=== PATIENT | female | born 1990 | race Caucasian/White ===

== ENCOUNTER 2017-04-02 17:16 | Emergency (ER) | payer OTHER ==
[~2017-04-02] VITALS: Ht 162.6 cm; Wt 77.6 kg
[~2017-04-02 17:16] MED LIST: 12 HOUR DECONG120 M1 PO; ALBUTEROL SULF8.5 GM IH; ANTIVERT25 MG PO; AZITHROMYCIN250 MG1 PO; BACTRIM,SEPT1 TABLET PO; CLARITIN10 M3 PO; Cipro PO; Flagyl PO; KEFLEX500 MG PO; Mylicon,Mylanta Gas, PO; PREDNISONE20 MG PO; Percocet 5/325,Endoc PO; RANITIDINE HCL300 MG PO; Zofran ODT PO
[2017-04-02] MEDS ORDERED: FLEXERIL10 MG PO (18:12)
[2017-04-02] MEDS ORDERED: MOTRIN600 MG PO (18:12)
[2017-04-02 18:34] VITALS: BP 134/84
== END 2017-04-02 18:36 | disposition home or self-care (01) ==
LOC: EME 17:16
DX: S16.1XXA Strain of muscle, fascia and tendon at neck level, initial encounter (principal); S39.012A Strain of muscle, fascia and tendon of lower back, initial encounter; V43.52XA Car driver injured in collision with other type car in traffic accident, initial encounter; Y92.414 Local residential or business street as the place of occurrence of the external cause; F17.210 Nicotine dependence, cigarettes, uncomplicated; Z88.8 Allergy status to other drugs, medicaments and biological substances
CPT/HCPCS: 99281; 99283

== ENCOUNTER 2017-07-15 14:34 | Emergency (ER) | payer OTHER ==
[~2017-07-15 14:34] MED LIST changes: +FLEXERIL10 MG PO; +MOTRIN600 MG PO
== END 2017-07-15 15:37 | disposition left against medical advice (07) ==
LOC: EME 14:34
DX: R42 Dizziness and giddiness (principal); R06.02 Shortness of breath; R51 Headache; Z53.21 Procedure and treatment not carried out due to patient leaving prior to being seen by health care provider

== ENCOUNTER 2017-11-30 08:12 | Emergency (ER) | payer OTHER ==
[~2017-11-30] VITALS: Ht 162.6 cm; Wt 74.4 kg
[2017-11-30 09:20] LABS: ALBUMIN 4.6 G/DL (3.2-4.8); CHLORIDE 109 MEQ/L (99-109); POTASSIUM 4.5 MEQ/L (3.7-5.4); SODIUM 139 MEQ/L (136-147); TOTAL BILIRUBIN 0.6 MG/DL (0.0-1.0)
[2017-11-30 09:25] LABS: ALKALINE PHOSPHATASE 47 IU/L (3-129); ALT (GPT) 14 IU/L (3-49); AST (GOT) 17 IU/L (2-34); CREATININE 0.8 MG/DL (0.6-1.3); GFR ESTIMATE (CALCULATED) > 59 mL/min/; GLUCOSE 97 mg/dL (70-99); TOTAL PROTEIN 6.8 G/DL (6.4-8.3); UREA NITROGEN (BUN) 10 mg/dL (9-23)
[2017-11-30 09:35] LABS: HEMATOCRIT 42.9 % (36.0-46.0); HEMOGLOBIN 15.3 G/DL (11.9-15.5); MCH 33.4 PG (29.0-34.0); MCHC 35.7 G/DL (30.0-36.0); MCV 93.7 FL (83-99); RBC DIS.WIDTH-CV 11.9 % (11.8-14.6); RBC DIS.WIDTH-SD 40.8 % (39-53); RED BLOOD COUNT 4.58 M/uL (3.80-5.20); WHITE BLOOD COUNT 8.6 K/uL (4.1-10.2)
[2017-11-30 10:10] LABS: PLAT.SUFFICIENCY ADEQUATE; PLATELET COUNT 321 K/uL (156-360)
[2017-11-30 10:17] LABS: QUANTITATIVE HCG < 4.0 MIU/ML
[2017-11-30 11:13] LABS: APPEARANCE CLEAR ((CLEAR)); BILIRUBIN NEGATIVE; BLOOD NEGATIVE; COLOR YELLOW ((YELLOW)); GLUCOSE (STRIP) NEGATIVE; KETONES NEGATIVE; LEUKOCYTES NEGATIVE; NITRITE NEGATIVE; PROTEIN (STRIP) NEGATIVE; SPECIFIC GRAVITY 1.019 (1.000-1.030); UCUL ADDED? NO; UROBILINOGEN 0.2 MG/DL (0.2-1.0)
[2017-11-30] MEDS ORDERED: BENTYL20 MG PO (12:15)
[2017-11-30 12:25] VITALS: BP 102/57
== END 2017-11-30 12:26 | disposition home or self-care (01) ==
LOC: EME 08:12
PROVIDERS: Nurse Practitioner Family
DX: R10.84 Generalized abdominal pain (principal); R19.7 Diarrhea, unspecified; R14.0 Abdominal distension (gaseous); Z97.5 Presence of (intrauterine) contraceptive device; F17.200 Nicotine dependence, unspecified, uncomplicated; Z88.5 Allergy status to narcotic agent; Z88.8 Allergy status to other drugs, medicaments and biological substances
CPT/HCPCS: 74018; 80053; 81003; 83630; 83690; 84702; 85027; 87177; 99281; 99284